=== PATIENT | female | born 1950 | race Caucasian/White ===

== ENCOUNTER → 2021-05-12 | Day surgery (SDC) | payer MEDICARE, OTHER ==
[~2021-05-12] VITALS: Ht 167.6 cm; Wt 76.2 kg
[~2021-05-12] MED LIST: AMLODIPINE BESYL5 MG PO; ANTIVERT25 MG PO; ASPIRIN EC81 MG PO; ATORVASTATIN CA40 MG PO; COQ-10100 MG PO; HYDROCHLOROTH12.5 MG PO; LOVAZA1 GM PO; METOPROLOL SUCC50 MG PO; NORCO 5-325 TA1 EACH PO; PRILOSEC20 MG PO; VITAMIN D350 MC3 PO; VITAMIN E450 MG PO; ZYRTEC10 M3 PO
[2021-05-12 08:56] LABS: HCT 40.7 % (37.0-47.0); HGB 13.3 g/dl (12.5-16.0); MCH 29.4 pg (25.0-31.0); MCHC 32.7 g/dL (32.0-36.0); MPV 10.7 fL (6.0-9.5); RBC 4.52 M/uL (4.20-5.40); RDW 13.7 % (11.5-14.0); WBC 8.1 K/uL (4.0-10.5)
[2021-05-12 09:15] LABS: ALBUMIN 3.7 g/dL (3.4-5.0); BILIRUBIN - TOTAL 0.3 mg/dL (0.2-1.0); BUN/CREAT RATIO (CALC) 28.1 RATIO; CREATININE 0.57 mg/dL (0.51-0.95); GLOBULIN (CALCULATION) 3.6 g/dL; POTASSIUM 3.9 mmol/L (3.5-5.1); TOTAL PROTEIN 7.3 g/dL (6.4-8.2)
== END | disposition home or self-care (01) ==
LOC: FAS 05-09 09:15
PROVIDERS: Surgery
DX: D12.6 Benign neoplasm of colon, unspecified (principal); K64.1 Second degree hemorrhoids; K29.50 Unspecified chronic gastritis without bleeding; K31.9 Disease of stomach and duodenum, unspecified; I10 Essential (primary) hypertension; M19.90 Unspecified osteoarthritis, unspecified site; Z88.1 Allergy status to other antibiotic agents; Z88.5 Allergy status to narcotic agent; Z88.8 Allergy status to other drugs, medicaments and biological substances; Z79.899 Other long term (current) drug therapy
CPT/HCPCS: 36415; 80053; J1100; J2250; J2704; J7120

== ENCOUNTER 2022-01-31 16:40 | Emergency (ER) | payer MEDICARE, OTHER ==
[2022-01-31] MEDS ORDERED: NORCO 5/3251 EACH PO (22:10)
== END 2022-01-31 23:10 | disposition home or self-care (01) ==
LOC: FER 16:40
DX: M79.642 Pain in left hand (principal); M79.641 Pain in right hand; M25.532 Pain in left wrist; M25.531 Pain in right wrist; M25.561 Pain in right knee; M25.521 Pain in right elbow; Z88.8 Allergy status to other drugs, medicaments and biological substances; Z91.013 Allergy to seafood; W19.XXXA Unspecified fall, initial encounter; Y92.009 Unspecified place in unspecified non-institutional (private) residence as the place of occurrence of the external cause
CPT/HCPCS: 73080; 73100; 73130; 73564